=== PATIENT | female | born 1990 | race Caucasian/White ===

== ENCOUNTER 2022-10-10 16:49 | Inpatient (IN) | payer BC, SELFPAY ==
[2022-10-10] VITALS (13 sets, daily range): BP systolic 98–128; BP diastolic 69–100; PULSE 73–106; RESP 11–22; TEMP 36.9; O2SAT 90–99
[2022-10-10] MEDS: naloxone 0.4 mg/ml SDV IVP ×2 (16:50→17:00)
--- NOTE | 2022-10-10 16:57 | XRR_ITS ---
PROCEDURE INFORMATION: Exam: XR Chest Exam date and time: 10/10/2022 5:11 PM Age: 32 years old Clinical indication: Other: Od aspiration; Additional info: Overdose aspiration TECHNIQUE: Imaging protocol: Radiologic exam of the chest. Views: 1 view. COMPARISON: No relevant prior studies available. FINDINGS: Lungs: There are bilateral perihilar and lower lobe airspace density, which may represent pneumonia, pulmonary edema, or inflammatory pneumonitis such as ARDS. Diffuse peribronchial thickening, cephalization of flow and interstitial thickening is noted compatible probable CHF. Pleural spaces: Unremarkable. No pleural effusion. No pneumothorax. Heart/Mediastinum: The heart is enlarged. Bones/joints: No acute abnormality. XR/XR chest 1V portable [id number] IMPRESSION: 1. There are bilateral perihilar and lower lobe airspace density, which may represent pneumonia, pulmonary edema, or inflammatory pneumonitis such as ARDS. 2. Probable CHF.
[2022-10-10 17:06] LABS: ABG PCO2 39.3 mmHg (35-45); ABG PH Result 7.33 (7.35-7.45); Alveolar-Arterial Oxygen Gradi 7.2 mmHg (5-10); Arterial Blood Gas Hematocrit 42.7 % (37-47); Base Excess ABG -4.6 mmol/L (-2.0-2.0); Blood Gas Allen Test Pos; Blood Gas Operator Identificat AMH; Blood Gas Sample Site Radial, left; Blood Gas Sample Type Arterial; Carboxyhemoglobin 2.6 %THgb (0.4-20.1); HCO3 ABG 20.9 mmol/L (22-26); HGB O2 Sat 79.2 % (95-100); Ionized Calcium Level - ABG 1.2 mmol/L (1.1-1.4); Methemoglobin 0.2 % (0.4-1.5); Oxygen Device NC; Oxygen Saturation ABG 81.5; PO2 ABG 45.3 mmHg (80.0-100.0); Potassium Level - ABG 3.6 mmol/L (3.5-5.0); Total Hemoglobin 13.9 g/dL (12-16)
--- NOTE | 2022-10-10 17:07 | W.ED.GENADLT ---
[facility] - General Adult General: Chief complaint: Overdose Stated complaint: OVERDOSE Time Seen by Provider: 10/10/22 16:55 Limitations: altered mental status History of Present Illness: Patient brought into the ER unresponsive and apneic and blue. Patient unresponsive to sternal rub. Was noted somebody said that she may have smoked something that had fentanyl in it. Review of Systems General: Reports: ROS unobtainable due to medical condition and ROS unobtainable due to mental status Physical Exam Const: OTHER: unResponsive to sternal rub and apneic upon arrival. HENMT: COMMON NORMALS: normocephalic and atraumatic (Cyanotic) HEAD & SCALP: normocephalic and atraumatic (Cyanotic) Eye: COMMON NORMALS: Equal, round and reactive pupils present PUPIL: Yes Equal, round and reactive pupils present Neck/C-Spine: COMMON NORMALS: no JVD Resp: OTHER: Apneic upon arrival Cardio: COMMON NORMALS: no JVD, regular rate, regular rhythm, S1 normal heart sound present, S2 normal heart sound present, No gallops present (Cardio), No clicks present (Cardio), No murmurs present (Cardio) and No rub (Cardio) RATE: regular rate RHYTHM: regular rhythm HEART SOUNDS: S1 normal heart sound present and S2 normal heart sound present GI: COMMON NORMALS: Normal to inspection, nondistended, normoactive bowel sounds present, Soft to palpation, non-tender, No hepatosplenomegaly present and no masses PALPATION: Yes Soft to palpation and Yes No hepatosplenomegaly present Skin: NARRATIVE SKIN EXAM: Cyanotic [facility] - General Adult Medical Decision Making Patient arrived to the ER apneic and blue and unresponsive. IV was started patient was given approximately 0.8 mg of Narcan while we were bagging her. Patient then proceeded to vomit up a copious amount of vomitus with alcohol. Patient then was alert but requiring high flow oxygen. ABG and labs was obtained as well as a chest x-ray. Patient did admit to smoking fentanyl. And drinking all day long. Anticipate patient will be admitted to the ICU for observation Differential Diagnosis Overdose Medical Records I reviewed the patient's medical records. Lab Data I reviewed the patient's lab results. 10/10/22 16:55 10/10/22 16:55 Radiology Impressions Chest X-Ray 10/10/22 16:57 IMPRESSION: 1. There are bilateral perihilar and lower lobe airspace density, which may represent pneumonia, pulmonary edema, or inflammatory pneumonitis such as ARDS. 2. Probable CHF. Laboratory Results WBC 19.6 10^3/uL (4.0-10.0) H 10/10/22 16:55 RBC 4.56 10^6/uL (4.1-5.3) 10/10/22 16:55 Hgb 13.5 g/dL (11.5-15.3) 10/10/22 16:55 Hct 42.0 % (37.0-47.0) 10/10/22 16:55 MCV 92.1 fl (81-99) 10/10/22 16:55 MCH 29.6 pg (28.0-34.0) 10/10/22 16:55 MCHC 32.1 g/dL (30.0-36.0) 10/10/22 16:55 RDW 12.5 % (12.1-15.1) 10/10/22 16:55 Plt Count 423 10^3/cmm (130-400) H 10/10/22 16:55 MPV 9.5 fL (7.4-10.4) 10/10/22 16:55 Neut % (Auto) 33.9 % 10/10/22 16:55 Lymph % (Auto) 56.9 % 10/10/22 16:55 Hunt % (Auto) 5.5 % 10/10/22 16:55 Eos % (Auto) 3.0 % 10/10/22 16:55 Baso % (Auto) 0.4 % 10/10/22 16:55 Neut # (Auto) 6.66 10^3/uL (1.8-7.7) 10/10/22 16:55 Lymph # (Auto) 11.2 10^3/uL (0.8-4.8) H 10/10/22 16:55 Hunt # (Auto) 1.1 10^3/uL (0.2-0.9) H 10/10/22 16:55 Eos # (Auto) 0.6 10^3/uL (0.0-0.8) 10/10/22 16:55 Baso # (Auto) 0.1 10^3/uL (0.0-0.1) 10/10/22 16:55 Nucleated RBC % (auto) 0 % 10/10/22 16:55 Nucleated RBCs # 0.0 /100WBC 10/10/22 16:55 Specimen Type Arterial 10/10/22 16:55 Sample Site Radial, left 10/10/22 16:55 ABG pH 7.33 (7.35-7.45) L 10/10/22 16:55 ABG pCO2 39.3 mmHg (35-45) 10/10/22 16:55 ABG pO2 45.3 mmHg (80.0-100.0) L 10/10/22 16:55 ABG HCO3 20.9 mmol/L (22-26) L 10/10/22 16:55 ABG O2 Saturation 81.5 10/10/22 16:55 ABG Base Excess -4.6 mmol/L (-2.0-2.0) L 10/10/22 16:55 John Test Pos 10/10/22 16:55 A-a O2 Gradient 7.2 mmHg (5-10) 10/10/22 16:55 Hematocrit 42.7 % (37-47) 10/10/22 16:55 Hgb O2 Saturation 79.2 % (95-100) L 10/10/22 16:55 Carboxyhemoglobin 2.6 %THgb (0.4-20.1) 10/10/22 16:55 Methemoglobin 0.2 % (0.4-1.5) L 10/10/22 16:55 Total Hemoglobin 13.9 g/dL (12-16) 10/10/22 16:55 Sodium 139.0 mmol/L (131-143) 10/10/22 16:55 Potassium 3.6 mmol/L (3.5-5.0) 10/10/22 16:55 Glucose 189.0 mg/dL (70-115) H 10/10/22 16:55 Ionized Calcium 1.2 mmol/L (1.1-1.4) 10/10/22 16:55 O2 Delivery Device Nc 10/10/22 16:55 Public Message Service Supervisor ID Amh 10/10/22 16:55 Sodium 136 mmol/L (136-145) 10/10/22 16:55 Potassium 4.3 mmol/L (3.5-5.1) 10/10/22 16:55 Chloride 99 mmol/L (98-107) 10/10/22 16:55 Carbon Dioxide 22 mmol/L (22-29) 10/10/22 16:55 Anion Gap 19.3 (5-19) H 10/10/22 16:55 BUN 10 mg/dL (6-20) 10/10/22 16:55 Creatinine 0.8 mg/dL (0.5-0.9) 10/10/22 16:55 GFR Calculation 84.2 mL/min (90-130) L 10/10/22 16:55 Glucose 184 mg/dL (65-115) H 10/10/22 16:55 Calculated Osmolality 286 mOsm/kg (285-295) 10/10/22 16:55 Calcium 8.7 mg/dL (8.5-10.5) 10/10/22 16:55 Total Bilirubin 0.2 mg/dL (0.15-1.2) 10/10/22 16:55 AST 25 U/L (0-32) 10/10/22 16:55 ALT 22 U/L (0-33) 10/10/22 16:55 Alkaline Phosphatase 79 U/L (35-105) 10/10/22 16:55 Total Protein 7.2 g/dL (6.6-8.7) 10/10/22 16:55 Albumin 4.1 g/dL (3.5-5.2) 10/10/22 16:55 Globulin 3.1 g/dL (1.3-4.6) 10/10/22 16:55 Salicylates < 0.3 mg/dL (3-10) L 10/10/22 16:55 Acetaminophen < 5.0 ug/mL (10-30) L 10/10/22 16:55 Ethyl Alcohol 54 mg/dL (0-10) H 10/10/22 16:55 EKG Data EKG 1: I personally reviewed and interpreted this EKG as follows: EKG interpretation date: 10/10/22 EKG interpretation time: 17:18 Prior EKG tracings: not available for review Interpretation: EKG showed ventricular rate 84 beats a minute, NM interval 141, QRS duration 103, QTc of 478, sinus rhythm with no ST-T wave changes Computer generated interpretation: Chest X-Ray 10/10/22 16:57 IMPRESSION: 1. There are bilateral perihilar and lower lobe airspace density, which may represent pneumonia, pulmonary edema, or inflammatory pneumonitis such as ARDS. 2. Probable CHF. Critical Care Time Critical Care Time: Critical Care Time: Yes Total Critical Care Time: 30 Attestation: The high probability of a clinically significant, sudden or life threatening deterioration of the patient's [cardiorespiratory] system(s) required my full and direct attention, intervention and personal management. The critical care time is as shown. This time is in addition to time spent performing any reported procedures but includes the following: [x] Data and vital sign review and interpretation [x] Patient assessment, examination and intervention [x] Documentation [x] Medication orders and management Discharge Plan Discharge Patient Disposition: Admitted As Inpatient Clinical Impression: Drug overdose Condition: Stable Referrals: Jenny King FNP [Primary Care Provider] - Patient Instructions: Opioid Safety, Pain Management Coding Level of Care Code ED Library Services Dean for Alex Wilkerson
[2022-10-10 17:14] LABS: Basophils # 0.1 10^3/uL (0.0-0.1); Basophils % 0.4 %; Eosinophils # 0.6 10^3/uL (0.0-0.8); Hemoglobin 13.5 g/dL (11.5-15.3); Lymphocytes # 11.2 10^3/uL (0.8-4.8); Lymphocytes % 56.9 %; Mean Corpuscular HGB Conc 32.1 g/dL (30.0-36.0); Mean Corpuscular Hemoglobin 29.6 pg (28.0-34.0); Mean Corpuscular Volume 92.1 fl (81-99); Mean Platelet Volume 9.5 fL (7.4-10.4); Monocytes # 1.1 10^3/uL (0.2-0.9); Monocytes % 5.5 %; Neutrophils # 6.66 10^3/uL (1.8-7.7); Neutrophils % 33.9 %; Nucleated Red Blood Cells % 0 %; Platelet Count 423 10^3/cmm (130-400); Red Blood Count 4.56 10^6/uL (4.1-5.3); Red Cell Distribution Width 12.5 % (12.1-15.1); White Blood Count 19.6 10^3/uL (4.0-10.0)
--- NOTE | 2022-10-10 17:18 | ECG_ITS ---
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 Measurements Intervals [place] Rate: 84 P: 39 MA: 141 QRS: 65 QRSD: 103 T: 52 QT: 436 QTc: 518 Interpretive Statements SINUS RHYTHM PROLONGED QT INTERVAL No previous ECG available for comparison Electronically Signed On 10-11-2022 18:35:51 CDT by Jamaal Mensah M.D. [id number]
[2022-10-10] MEDS: sodium chloride 0.9% 1,000 ML 999 ML IV (17:22)
[2022-10-10] MEDS: ondansetron 2 mg/ML SDV 2 mL 8 MG IVP (17:22)
[2022-10-10 17:30] LABS: Slide Review Slide Review Perform
[2022-10-10 17:35] LABS: Alanine Aminotransferase 22 U/L (0-33); Albumin Level 4.1 g/dL (3.5-5.2); Alcohol Level 54 mg/dL (0-10); Alkaline Phosphatase 79 U/L (35-105); Anion Gap 19.3 (5-19); Aspartate Amino Transferase 25 U/L (0-32); Blood Urea Nitrogen 10 mg/dL (6-20); Calcium 8.7 mg/dL (8.5-10.5); Carbon Dioxide 22 mmol/L (22-29); Chloride 99 mmol/L (98-107); Globulin 3.1 g/dL (1.3-4.6); Glomerular Filtration Rate 84.2 mL/min (90-130); Glucose 184 mg/dL (65-115); Osmolality Calculated 286 mOsm/kg (285-295); Potassium 4.3 mmol/L (3.5-5.1); Sodium 136 mmol/L (136-145); Total Bilirubin 0.2 mg/dL (0.15-1.2); Total Protein 7.2 g/dL (6.6-8.7)
--- NOTE | 2022-10-10 17:38 | PC.NURSE ---
PT arrived POV nursing staff helped PT from vehicle to wheelchair. pt arrived to room and was not breathing, appeared pale, pupils dilated and fixed, but did have a strong pulse. Respiratory was in room and began to bag PT. 2 18 gauge IVs placed in AV bilateral. PT received Narcan at 1647 IV. PT received an additional dose of NArcan IV at 1651. At 1652 PT sat up and began to vomit. Bag mask was removed and respiratory began suctioning. At 1654 respiratory placed PT on 6L NC 1654 vitals: 158/100, 29RR, 99 pulse, 85 percent o2, PT placed on 15 L non rebreather by respiratory o2 sats come above 90 percent. By 1700 pt was sating above 90, answering questions appropriately and in NAD. PT admitted to nursing staff she smoked fentanyl and had been drinking. Physician, several RN's, respiratory, and tech present at time of event.
[2022-10-10 17:51] LABS: Acetaminophen < 5.0 ug/mL (10-30); Salicylate < 0.3 mg/dL (3-10)
[2022-10-10] MEDS: FUROsemide 10 mg/mL SDV 10mL 60 MG IVP (18:23)
[2022-10-10] MEDS: piperacillin-tazobactam 3.375 GM in sodium chloride 0.9% (plus) 50 ML IV (18:23)
--- NOTE | 2022-10-10 18:31 | P.HP_ITS ---
Providers/Chief Complaint Admitting Physician: Britney Hawkins MD Primary Care Provider: ROSALIE Deluna Chief Complaint: OVERDOSE History of Present Illness Jamilah Vargas is a 32 year old female who presented with fentanyl overdose, responded very well to Narcan, patient stating that she has been drinking alcohol has been clean off fentanyl for a while and tried 1 more time today and became unresponsive. She does not member anything, she is not endorsing homicidal or suicidal ideation. 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 She aspirated after couple episode of vomiting when she woke up. Currently she is tachycardic, suffering from aspiration pneumonia requiring 6 L of nasal cannula along 15 L nonrebreather mask. She is saturating well able to protect airway, awake and alert, able to tell us H&P Lives with a boyfriend and 2 kids Review of Systems Const: Reports: chills Eyes: Denies: change in vision ENMT: Denies: throat pain Card: Denies: chest pain Resp: Reports: dyspnea GI: Denies: abdominal pain : Denies: flank pain Musc: Denies: neck pain Skin/Breast: Denies: rash Neuro: Reports: headache(s) Psych: Reports: anxiety PFSH Acute PFSH: Medical History (Updated 10/10/22 @ 18:37 by Britney Hawkins MD) Polysubstance abuse Surgical History (Updated 10/10/22 @ 18:37 by Britney Hawkins MD) No pertinent past surgical history Family History (Updated 10/10/22 @ 18:37 by Britney Hawkins MD) Denies family history of CAD (coronary artery disease) Social History (Updated 10/10/22 @ 18:37 by Britney Hawkins MD) Smoking and tobacco status: current every day smoker Alcohol intake: current Substance/Drug Use: current Vitals/I&O/Wt Last Vital Signs Pulse 90 10/10/22 18:15 Resp 16 10/10/22 18:15 BP 106/79 10/10/22 18:15 Pulse Ox 90 10/10/22 18:15 O2 Del Method Non-Rebreather 10/10/22 18:12 O2 Flow Rate 15 10/10/22 18:12 Physical Exam Narrative: Patient is awake and alert GCS 15 Awake and alert Nonfocal neuro exam S1, S2 Currently on 15 L nonrebreather mask and 6 L nasal cannula Chest normal Able to block airway Nonfocal neuro exam S1, S2 sinus tachycardia Hypertensive Abdomen soft No signs of edema Data 10/10/22 16:55 10/10/22 16:55 A&P Assessment and plan (1) Aspiration pneumonia: (2) Drug overdose: Qualifiers: Encounter type: initial encounter Injury intent: accidental or unintentional Qualified Code(s): T50.901A - Poisoning by unspecified drugs, medicaments and biological substances, accidental (unintentional), initial encounter Plan Aspiration pneumonia Drug overdose Patient stating that she could have history of persistent abuse, she was clean off fentanyl for quite some time and tried 1 more time today Not homicidal or suicidal Tachycardia Patient had 2 shots of tequila as well along her frontal, patient endorsing to smoking fentanyl Responded to 2 doses of Narcan We will monitor in ICU After vomiting she aspirated now suffering from aspiration pneumonia We will start broad-spectrum antibiotics Monitor for any kind of arrhythmias, started on thiamine and folic acid Full code We will keep her on clear liquids for now DVT prophylaxis Lovenox Attestations Medical Necessity Statement*: Anticipating more than 2 midnights for monitoring of fentanyl overdose Diagnoses Aspiration pneumonia J69.0 Drug overdose T50.901A Encounter type: initial encounter Injury intent: accidental or unintentional
[2022-10-10] MEDS: vancomycin 1,000 MG in sodium chloride 0.9% 250 ML 250 MG IV (18:42)
[2022-10-10 19:14] LABS: HCG Qualitative Urine. Negative (Negative)
--- NOTE | 2022-10-10 19:32 | USCV_ITS ---
Jamilah Vargas Age: 32 Gender: F : 1990 Exam Date: 10/10/2022 21:04 Ordering Phys: Britney Hawkins MD Technologist: ZACHARY [place] [facility] [place]: chf BP: / HR: 86 Rhythm: Sinus Technical Quality: Adequate MEASUREMENTS (Male / Female) Normal Values 2D ECHO LV Diastolic Diameter PLAX 5.1 cm 4.2 - 5.9 / 3.9 - 5.3 cm LV Systolic Diameter PLAX 4.3 cm IVS Diastolic Thickness 1.0 cm 0.6 - 1.0 / 0.6 - 0.9 cm IVS Systolic Thickness 1.3 cm LVPW Diastolic Thickness 0.9 cm 0.6 - 1.0 / 0.6 - 0.9 cm LVPW Systolic Thickness 1.1 cm LVOT Diameter 2.1 cm LV Ejection Fraction 2D Teich 32.5 % LV Ejection Fraction MOD 2C 29.6 % LV Ejection Fraction 2C AL 29.6 % LA Diameter 2.6 cm IVC Diameter 1.6 cm M-MODE Aortic Annulus Diameter 3.4 cm LA Ao Ratio MM 0.8 MV E Point Septal Separation 1.0 cm DOPPLER AV Peak Velocity 100.0 cm/s LVOT Peak Velocity 88.0 cm/s AV Area Cont Eq vti 2.8 cm squared AV Area Cont Eq pk 3.1 cm squared MV Area PHT 5.0 cm squared Mitral E to A Ratio 0.6 MV E' Velocity 54.0 cm/s TR Peak Velocity 244.3 cm/s TR Peak Gradient 23.9 mmHg TV Peak E Velocity 39.0 cm/s Right Atrial Pressure 3.0 mmHg Pulmonary Artery Systolic Pressu 26.9 mmHg PV Peak Velocity 73.0 cm/s FINDINGS Left Ventricle Normal left ventricular cavity size. Severely decreased left ventricular systolic function. Left ventricular ejection fraction is estimated at 25-30 %. Severe global hypokinesis of mid to apical anterior, mid to apical inferior, mid anteroseptal, mid inferoseptal, mid lateral and apical elaine. Grade I diastolic dysfunction (abnormal relaxation filling pattern), normal to mildly elevated filling pressures. LV apical thrombus cannot be completely excluded. Right Ventricle Normal right ventricular size and systolic function. Right ventricular systolic pressure 27 mmHg. Right Atrium Normal right atrial size. Left Atrium Normal left atrial size. Mitral Valve Structurally normal mitral valve. No mitral valve stenosis. No mitral valve regurgitation. Aortic Valve Structurally normal trileaflet aortic valve. No aortic valve stenosis. Trace aortic valve regurgitation. Tricuspid Valve Structurally normal tricuspid valve. No tricuspid valve stenosis. Mild tricuspid valve regurgitation. Pulmonic Valve Pulmonic valve not well visualized. Pericardium No pericardial effusion. Aorta Normal size aortic root and proximal ascending aorta. IVC Normal IVC dimension with >50% respiratory change of the inferior vena cava. CONCLUSIONS 1. Normal left ventricular cavity size. Severely decreased left ventricular systolic function. Left ventricular ejection fraction is estimated at 25-30 %. Severe global hypokinesis of mid to apical anterior, mid to apical inferior, mid anteroseptal, mid inferoseptal, mid lateral and apical elaine. Grade I diastolic dysfunction (abnormal relaxation filling pattern), normal to mildly elevated filling pressures. LV apical thrombus cannot be completely excluded. 2. Mild tricuspid valve regurgitation. 3. These findings suggest Takotsubo cardiomyopathy provided coronary artery disease is ruled out. 4. Repeat study with ultrasound enhancing agent is recommended. Dottie Mcclure MD (Electronically Signed) Final Date: 11 October 2022 10:53 S
[2022-10-10] MEDS: heparin 5,000 unit/mL INJ 1 mL 5000 UNIT SUBCUT (19:44)
[2022-10-10] MEDS: acetaminophen 500 mg Tablet PO (20:07)
[2022-10-10 20:22] LABS: NT Pro B Type Natriuretic Pept 189 pg/mL (0-125); Procalcitonin 0.02 ng/mL (0-0.5); Thyroid Stimulating Hormone 2.58 uIU/mL (0.27-4.20)
[2022-10-10 21:24] LABS: Amphetamines Screen Urine Negative (Negative); Barbiturates Screen Urine Negative (Negative); Benzodiazepines Screen Urine Negative (Negative); Cocaine Screen Urine Positive (Negative); Opiate Screen Urine Negative (Negative); PCP Screen Urine Negative (Negative); THC Screen Urine Negative (Negative); Urine Appearance SL Hazy (CLEAR); Urine Color Red (Yellow); pH Urine 7 (5-7)
[2022-10-10 21:25] LABS: Add Urine Microscopic? YES; Bacteria Urine TRACE /hpf; Bilirubin Urine Neg (Negative); Blood Urine 3+ (Negative); Glucose Urine UA Norm (Normal); Ketones Urine Negative (Negative); Leukocyte Esterase Urine Trace (Negative); Nitrate Urine Negative (Negative); Protein Urine Neg (Negative); RBC Urine >100 /hpf (0-2); Squamous Epithelial Cell Urine 0-4 /hpf (0-5); Urobilinogen Urine Norm (Negative); WBC Urine 0-4 /hpf (0-5)
[2022-10-10 21:26] LABS: Add Urine Culture? Yes
[2022-10-11] VITALS (23 sets, daily range): BP systolic 87–129; BP diastolic 62–90; PULSE 66–85; RESP 9–22; TEMP 36.8–37.6; O2SAT 90–98
[2022-10-11] MEDS: piperacillin-tazobactam 3.375 GM in sodium chloride 0.9% (plus) 50 ML IV ×3 (01:49→19:24)
[2022-10-11 03:20] LABS: Basophils % 0.3 %; Eosinophils # 0.2 10^3/uL (0.0-0.8); Eosinophils % 1.7 %; Hemoglobin 13.7 g/dL (11.5-15.3); Lymphocytes # 2.9 10^3/uL (0.8-4.8); Lymphocytes % 24.6 %; Mean Corpuscular HGB Conc 32.6 g/dL (30.0-36.0); Mean Corpuscular Volume 91.9 fl (81-99); Mean Platelet Volume 9.6 fL (7.4-10.4); Monocytes # 0.5 10^3/uL (0.2-0.9); Monocytes % 4.5 %; Neutrophils # 8.18 10^3/uL (1.8-7.7); Neutrophils % 68.6 %; Nucleated Red Blood Cells % 0 %; Platelet Count 362 10^3/cmm (130-400); Red Blood Count 4.57 10^6/uL (4.1-5.3); Red Cell Distribution Width 12.6 % (12.1-15.1); White Blood Count 11.9 10^3/uL (4.0-10.0)
[2022-10-11 03:34] LABS: Anion Gap 15.2 (5-19); Blood Urea Nitrogen 8 mg/dL (6-20); C Reactive Protein 5.7 mg/L (0.0-4.9); Calcium 8.4 mg/dL (8.5-10.5); Carbon Dioxide 29 mmol/L (22-29); Chloride 98 mmol/L (98-107); Glomerular Filtration Rate 84.2 mL/min (90-130); Glucose 102 mg/dL (65-115); Magnesium 1.9 mg/dL (1.7-2.3); Osmolality Calculated 285 mOsm/kg (285-295); Phosphorus 3.3 mg/dL (2.5-4.5); Potassium 4.2 mmol/L (3.5-5.1); Sodium 138 mmol/L (136-145)
[2022-10-11 03:37] LABS: HIV 1 & 2 Antibody Non-Reactive (Non-Reactiv); HIV 1 & 2 Antigen Non-Reactive (Non-Reactiv)
[2022-10-11 03:46] LABS: ABG PCO2 53.5 mmHg (35-45); ABG PH Result 7.38 (7.35-7.45); Arterial Blood Gas Hematocrit 41.5 % (37-47); Blood Gas Allen Test Pos; Blood Gas Sample Site Radial, right; Blood Gas Sample Type Arterial; HCO3 ABG 31.6 mmol/L (22-26); Oxygen Device NC; PO2 ABG 77.6 mmHg (80.0-100.0)
[2022-10-11 03:56] LABS: Hepatitis A Antibody IgM Non-Reactive (Nonreactive); Hepatitis B Core AB, Total Non-Reactive (Nonreactive); Hepatitis B Surface AB 4.2 (11.5-1000); Hepatitis B Surface Antigen Non-Reactive (Nonreactive); Hepatitis C Virus Antibody Non-Reactive (Nonreactive)
[2022-10-11] MEDS: heparin 5,000 unit/mL INJ 1 mL 5000 UNIT SUBCUT (07:58)
[2022-10-11] MEDS: folic acid 1 mg Tablet PO (08:00)
--- NOTE | 2022-10-11 08:31 | PC.PHAR ---
pt states she takes lexapro,protonix and xanax -pt states she is unsure of the mgs pt states she takes the peach xanax-pt states she fills her prescriptions at [facility] [phone]-pharmacy opens at 9 will call back at 9 and update med rec
--- NOTE | 2022-10-11 10:07 | ECG_ITS ---
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 Measurements Intervals [place] Rate: 72 P: 56 MI: 132 QRS: 55 QRSD: 120 T: 81 QT: 446 QTc: 488 Interpretive Statements SINUS RHYTHM MODERATE INTRAVENTRICULAR CONDUCTION DELAY [110+ ms QRS DURATION] Compared to ECG 10/10/2022 17:18:54 Intraventricular conduction delay now present Prolonged QT interval no longer present Electronically Signed On 10-11-2022 18:39:44 CDT by Jamaal Mensah M.D. [id number]
--- NOTE | 2022-10-11 10:08 | PM.DCS ---
Discharge Providers Date of Admission: 10/10/22 18:06 Date of Discharge: October 11, 2022 Attending Provider at Admission: Britney Hawkins MD Attending Provider at Discharge: Britney Hawkins MD Primary Care Provider: ROSALIE Deluna Diagnoses at Discharge Discharge Diagnosis (1) Aspiration pneumonia: Status: Acute (2) Drug overdose: Status: Acute Qualifiers: Encounter type: initial encounter Injury intent: accidental or unintentional Qualified Code(s): T50.901A - Poisoning by unspecified drugs, medicaments and biological substances, accidental (unintentional), initial encounter Reason for Visit Reason for Visit: OVERDOSE Hospital Course Hospital Course 32-year-old female who was admitted for management evaluation of unresponsiveness related to fentanyl, drug screen positive for cocaine as well, patient responded well to 2 doses of Narcan, remained hemodynamically stable, patient experienced 2 episode of vomiting after getting Narcan and aspirated, she remained afebrile, however required oxygen throughout hospitalization, she was monitored in the ICU, EKG showed QTc prolongation, no signs of arrhythmia, echo requested as well patient was given Zosyn for aspiration pneumonia and possible UTI. Next day patient was endorsing feeling better. Patient will be discharged on levofloxacin 5-day regimen along thiamine, folic acid. Patient is stating that she has history of polysubstance abuse and has lived a clean life for a long time but use fentanyl again after a long time, Physical Exam Narrative: Patient is awake and alert GCS 15 No respiratory distress Nonfocal neuro exam Abdomen soft Discharge Data Studies Completed and Pending Completed Studies During Hospitalization Category Date Time Status XR chest 1V portable [id number] Stat Exams 10/10/22 16:57 Completed Pending at discharge Category Date Time Status Blood Culture Stat Lab 10/10/22 19:42 Results MRSA by PCR Stat Lab 10/10/22 19:52 Received Sputum Culture and Gram Stain Stat Lab 10/10/22 20:09 Received Urine Culture Stat Lab 10/10/22 21:00 Received CV. echo complete* [id number] Routine Ultrasound 10/10/22 19:32 Taken Radiology Impressions Chest X-Ray 10/10/22 16:57 IMPRESSION: 1. There are bilateral perihilar and lower lobe airspace density, which may represent pneumonia, pulmonary edema, or inflammatory pneumonitis such as ARDS. 2. Probable CHF. Laboratory Results WBC 11.9 10^3/uL (4.0-10.0) H 10/11/22 02:19 RBC 4.57 10^6/uL (4.1-5.3) 10/11/22 02:19 Hgb 13.7 g/dL (11.5-15.3) 10/11/22 02:19 Hct 42.0 % (37.0-47.0) 10/11/22 02:19 MCV 91.9 fl (81-99) 10/11/22 02:19 MCH 30.0 pg (28.0-34.0) 10/11/22 02:19 MCHC 32.6 g/dL (30.0-36.0) 10/11/22 02:19 RDW 12.6 % (12.1-15.1) 10/11/22 02:19 Plt Count 362 10^3/cmm (130-400) 10/11/22 02:19 MPV 9.6 fL (7.4-10.4) 10/11/22 02:19 Neut % (Auto) 68.6 % 10/11/22 02:19 Lymph % (Auto) 24.6 % 10/11/22 02:19 Harlan % (Auto) 4.5 % 10/11/22 02:19 Eos % (Auto) 1.7 % 10/11/22 02:19 Baso % (Auto) 0.3 % 10/11/22 02:19 Neut # (Auto) 8.18 10^3/uL (1.8-7.7) H 10/11/22 02:19 Lymph # (Auto) 2.9 10^3/uL (0.8-4.8) 10/11/22 02:19 Harlan # (Auto) 0.5 10^3/uL (0.2-0.9) 10/11/22 02:19 Eos # (Auto) 0.2 10^3/uL (0.0-0.8) 10/11/22 02:19 Baso # (Auto) 0.0 10^3/uL (0.0-0.1) 10/11/22 02:19 Nucleated RBC % (auto) 0 % 10/11/22 02:19 Nucleated RBCs # 0.0 /100WBC 10/11/22 02:19 Specimen Type Arterial 10/11/22 03:30 Sample Site Radial, right 10/11/22 03:30 ABG pH 7.38 (7.35-7.45) 10/11/22 03:30 ABG pCO2 53.5 mmHg (35-45) H 10/11/22 03:30 ABG pO2 77.6 mmHg (80.0-100.0) L 10/11/22 03:30 ABG HCO3 31.6 mmol/L (22-26) H 10/11/22 03:30 ABG O2 Saturation 81.5 10/10/22 16:55 ABG Base Excess 5.0 mmol/L (-2.0-2.0) H 10/11/22 03:30 John Test Pos 10/11/22 03:30 A-a O2 Gradient 7.2 mmHg (5-10) 10/10/22 16:55 Hematocrit 41.5 % (37-47) 10/11/22 03:30 Hgb O2 Saturation 79.2 % (95-100) L 10/10/22 16:55 Carboxyhemoglobin 2.6 %THgb (0.4-20.1) 10/10/22 16:55 Methemoglobin 0.2 % (0.4-1.5) L 10/10/22 16:55 Total Hemoglobin 13.9 g/dL (12-16) 10/10/22 16:55 Sodium 139.0 mmol/L (131-143) 10/10/22 16:55 Potassium 3.6 mmol/L (3.5-5.0) 10/10/22 16:55 Glucose 189.0 mg/dL (70-115) H 10/10/22 16:55 Ionized Calcium 1.2 mmol/L (1.1-1.4) 10/10/22 16:55 O2 Delivery Device Nc 10/11/22 03:30 O2 Liters/Min 4.0 % 10/11/22 03:30 Supervisor Customer Complaint Service ID [email or web address] 10/11/22 03:30 Sodium 138 mmol/L (136-145) 10/11/22 02:19 Potassium 4.2 mmol/L (3.5-5.1) 10/11/22 02:19 Chloride 98 mmol/L (98-107) 10/11/22 02:19 Carbon Dioxide 29 mmol/L (22-29) 10/11/22 02:19 Anion Gap 15.2 (5-19) 10/11/22 02:19 BUN 8 mg/dL (6-20) 10/11/22 02:19 Creatinine 0.8 mg/dL (0.5-0.9) 10/11/22 02:19 GFR Calculation 84.2 mL/min (90-130) L 10/11/22 02:19 Glucose 102 mg/dL (65-115) 10/11/22 02:19 Calculated Osmolality 285 mOsm/kg (285-295) 10/11/22 02:19 Calcium 8.4 mg/dL (8.5-10.5) L 10/11/22 02:19 Phosphorus 3.3 mg/dL (2.5-4.5) 10/11/22 02:19 Magnesium 1.9 mg/dL (1.7-2.3) 10/11/22 02:19 Total Bilirubin 0.2 mg/dL (0.15-1.2) 10/10/22 16:55 AST 25 U/L (0-32) 10/10/22 16:55 ALT 22 U/L (0-33) 10/10/22 16:55 Alkaline Phosphatase 79 U/L (35-105) 10/10/22 16:55 C-Reactive Protein 5.7 mg/L (0.0-4.9) H 10/11/22 02:19 NT-Pro-B Natriuret Pep 189 pg/mL (0-125) H 10/10/22 19:42 Total Protein 7.2 g/dL (6.6-8.7) 10/10/22 16:55 Albumin 4.1 g/dL (3.5-5.2) 10/10/22 16:55 Globulin 3.1 g/dL (1.3-4.6) 10/10/22 16:55 Procalcitonin 0.02 ng/mL (0-0.5) 10/10/22 19:42 TSH 2.58 uIU/mL (0.27-4.20) 10/10/22 19:42 HCG, Qual Negative (Negative) 10/10/22 18:42 Urine Color Red (Yellow) 10/10/22 21:00 Urine Appearance Sl hazy (CLEAR) A 10/10/22 21:00 Urine pH 7 (5-7) 10/10/22 21:00 Ur Specific [place] 1.000 (1.005-1.030) L 10/10/22 21:00 Urine Protein Neg (Negative) 10/10/22 21:00 Urine Glucose (UA) Norm (Normal) 10/10/22 21:00 Urine Ketones Negative (Negative) 10/10/22 21:00 Urine Blood 3+ (Negative) H 10/10/22 21:00 Urine Nitrate Negative (Negative) 10/10/22 21:00 Urine Bilirubin Neg (Negative) 10/10/22 21:00 Urine Urobilinogen Norm mg/dL (Negative) 10/10/22 21:00 Ur Leukocyte Esterase Trace (Negative) H 10/10/22 21:00 Urine RBC >100 /hpf (0-2) H 10/10/22 21:00 Urine WBC 0-4 /hpf (0-5) H 10/10/22 21:00 Ur Squamous Epith Cells 0-4 /hpf (0-5) H 10/10/22 21:00 Amorphous Sediment Not Reportable 10/10/22 21:00 Urine Bacteria Trace /hpf (NONE) 10/10/22 21:00 Salicylates < 0.3 mg/dL (3-10) L 10/10/22 16:55 Urine Opiates Screen Negative ng/mL (Negative) 10/10/22 21:00 Acetaminophen < 5.0 ug/mL (10-30) L 10/10/22 16:55 Ur Barbiturates Screen Negative ng/mL (Negative) 10/10/22 21:00 Ur Phencyclidine Scrn Negative ng/mL (Negative) 10/10/22 21:00 Ur Amphetamines Screen Negative ng/mL (Negative) 10/10/22 21:00 U Benzodiazepines Scrn Negative ng/mL (Negative) 10/10/22 21:00 Urine Cocaine Screen Positive ng/mL (Negative) H 10/10/22 21:00 U Marijuana (THC) Screen Negative ng/mL (Negative) 10/10/22 21:00 Ethyl Alcohol 54 mg/dL (0-10) H 10/10/22 16:55 Hepatitis A IgM Ab Non-reactive (Nonreactive) 10/10/22 02:19 Hep Bs Antigen Non-reactive (Nonreactive) 10/10/22 02:19 Hep Bs Antibody 4.2 (11.5-1000) L 10/10/22 02:19 Hep B Core Total Ab Non-reactive (Nonreactive) 10/10/22 02:19 Hepatitis C Antibody Non-reactive (Nonreactive) 10/10/22 02:19 HIV 1&2 Ab & HIV 1 Ag Non-reactive (Non-Reactiv) 10/10/22 02:19 HIV 1&2 Antibody Non-reactive (Non-Reactiv) 10/10/22 02:19 Vitals Last Vital Signs Temp 98.2 F 10/11/22 03:00 Pulse 70 10/11/22 08:06 Resp 17 10/11/22 08:06 BP 87/62 10/11/22 08:00 Pulse Ox 93 10/11/22 08:06 O2 Del Method Nasal Cannula 10/11/22 08:06 O2 Flow Rate 2 10/11/22 08:06 Discharge Plan Discharge Patient Disposition: Home Condition: Stable Prescriptions: New folic acid 1 mg Tablet 1 mg PO DAILY Qty: 30 0RF naloxone [Narcan] 4 mg/actuation spray,non-aerosol 4 mg intranasal Q2M PRN (Reason: opioid overdose) Qty: 2 0RF Rx Instructions: spray 1 dose into ONE nostril; alternate nostrils w each dose until help arrives thiamine mononitrate (vit B1) 100 mg tablet 100 mg PO DAILY Qty: 30 0RF amoxicillin-pot clavulanate 875-125 mg tablet 1 tab PO BID Qty: 10 0RF Continued Xanax 0.5 mg Tablet 0.5 mg PO DAILY PRN (Reason: Anxiety) Protonix 40 mg Tablet,Delayed Release (Dr/Ec) 40 mg PO DAILY Lexapro 20 mg Tablet 20 mg PO DAILY Referrals: Jenny King FNP [Primary Care Provider] - 2 weeks Patient Instructions: Opioid Safety, Pain Management Coding Level of Care Code Acute Code for [facility] Fwd Diagnoses Aspiration pneumonia J69.0 Drug overdose T50.901A Encounter type: initial encounter Injury intent: accidental or unintentional
[2022-10-11] MEDS: lactated ringers 500 ML 999 ML IV (10:38)
[2022-10-11] MEDS: acetaminophen 500 mg Tablet PO (10:41)
--- NOTE | 2022-10-11 12:24 | P.PN_ITS ---
Subjective Subjective: Echo showed possibility for apical thrombus, will request echo with contrast Consulted accounts payable accountant Dr. James Patient will need coronary angiogram because her EF has dropped 30% likely nonischemic but would like to pursue further investigation Vitals/I&O/Wt Last Vital Signs Temp 98.2 F 10/11/22 03:00 Pulse 84 10/11/22 11:00 Resp 14 10/11/22 11:00 BP 94/70 10/11/22 11:00 Pulse Ox 97 10/11/22 11:10 O2 Del Method Nasal Cannula 10/11/22 08:06 O2 Flow Rate 2 10/11/22 08:06 10/10/22 10/11/22 10/11/22 22:59 06:59 14:59 Intake Total 1550 / 1550 50 / 1600 625 / 625 Balance 1550 / 1550 50 / 1600 625 / 625 Weight last 48 hrs Weight 86.75 kg Physical Exam Narrative: Euvolemic S1, S2 Currently on 2 L GCS 15 Nonfocal neuro exam Family is at the bedside Appropriate mood and affect Data 10/11/22 02:19 10/11/22 02:19 Micro: Microbiology 10/10/22 19:52 MRSA Culture - Final Nose 10/10/22 19:42 Blood Culture - Preliminary Blood SPECIMEN COLLECTED 10/10/22 19:35 Blood Culture - Preliminary Blood SPECIMEN COLLECTED A&P Assessment and plan (1) Aspiration pneumonia: (2) Drug overdose: Qualifiers: Encounter type: initial encounter Injury intent: accidental or unintentional Qualified Code(s): T50.901A - Poisoning by unspecified drugs, medicaments and biological substances, accidental (unintentional), initial encounter (3) Cardiomyopathy: Plan Likely nonischemic cardiomyopathy Concern for left ventricle thrombus We will start patient on IV anticoagulating agent EF is 30% Consulted cardiology No active signs of heart failure Low blood pressure, will give a low-dose bolus Drug overdose Cocaine positive Fentanyl overdose, status post 2 dose of Narcan Hemodynamically stable for now QTC prolongation, redo EKG, will require serial troponins and EKG Cardiac diet Full code Attestations Medical Necessity Statement*: Patient will stay until Tuesday for angiogram Diagnoses Aspiration pneumonia J69.0 Drug overdose T50.901A Encounter type: initial encounter Injury intent: accidental or unintentional Cardiomyopathy I42.9
--- NOTE | 2022-10-11 12:26 | USCV_ITS ---
Jamilah Vargas Age: 32 Gender: F : 1990 Exam Date: 10/11/2022 13:22 Ordering Phys: Britney Hawkins MD Technologist: Abdirizak Ojeda Exam Location: [facility] [place] Indication: ? lv thrombus BP: 127 / 86 HR: 74 Rhythm: Sinus Technical Quality: Good MEASUREMENTS (Male / Female) Normal Values 2D ECHO LV Diastolic Diameter PLAX 5.0 cm 4.2 - 5.9 / 3.9 - 5.3 cm LV Systolic Diameter PLAX 3.1 cm IVS Diastolic Thickness 1.0 cm 0.6 - 1.0 / 0.6 - 0.9 cm IVS Systolic Thickness 1.2 cm LVPW Diastolic Thickness 1.1 cm 0.6 - 1.0 / 0.6 - 0.9 cm LVPW Systolic Thickness 1.5 cm LV Ejection Fraction 2D Teich 69.5 % LV Ejection Fraction MOD 2C 40.4 % LV Ejection Fraction 2C AL 40.4 % LA Diameter 3.3 cm IVC Diameter 1.2 cm M-MODE Aortic Annulus Diameter 3.3 cm LA Ao Ratio MM 1.0 MV E Point Septal Separation 1.5 cm DOPPLER AV Peak Velocity 127.0 cm/s LVOT Peak Velocity 111.0 cm/s MV Area PHT 4.9 cm squared Mitral E to A Ratio 0.6 MV E' Velocity 33.0 cm/s Mitral E to MV E' Ratio 7.8 Mitral E to LV E' Lateral Ratio 7.1 Mitral E to LV E' Septal Ratio 8.9 TR Peak Velocity 178.3 cm/s TR Peak Gradient 12.7 mmHg TV Peak E Velocity 74.0 cm/s Right Atrial Pressure 3.0 mmHg Pulmonary Artery Systolic Pressu 15.7 mmHg RV Acceleration Time 0.1 s FINDINGS Left Ventricle Normal left ventricular cavity size. Severely decreased left ventricular systolic function. Left ventricular ejection fraction is estimated at 30 %. Severe global hypokinesis of mid to apical anterior, mid to apical inferior, mid anteroseptal, mid inferoseptal, mid lateral and apical elaine. Grade I diastolic dysfunction (abnormal relaxation filling pattern), normal to mildly elevated filling pressures. No evidence of LV apical thrombus. Right Ventricle Normal right ventricular size and systolic function. Right ventricular systolic pressure 15.7 mmHg. Right Atrium Normal right atrial size. Left Atrium Normal left atrial size. Mitral Valve Structurally normal mitral valve. No mitral valve stenosis. Trace mitral valve regurgitation. Aortic Valve Structurally normal trileaflet aortic valve. No aortic valve stenosis. No aortic valve regurgitation. Tricuspid Valve Structurally normal tricuspid valve. No tricuspid valve stenosis. Trace to mild tricuspid valve regurgitation. Pulmonic Valve Structurally normal pulmonic valve. No pulmonary valve stenosis. Trace pulmonary valve regurgitation. Pericardium No pericardial effusion. Aorta Normal size aortic root and proximal ascending aorta. IVC Normal IVC dimension with >50% respiratory change of the inferior vena cava. CONCLUSIONS 1. There is a technically difficult study. Echo contrast was used per protocol. 2. Normal left ventricular cavity size. Severely decreased left ventricular systolic function. Left ventricular ejection fraction is estimated at 30 %. Severe global hypokinesis of mid to apical anterior, mid to apical inferior, mid anteroseptal, mid inferoseptal, mid lateral and apical elaine. Grade I diastolic dysfunction (abnormal relaxation filling pattern), normal to mildly elevated filling pressures. No evidence of LV apical thrombus. Dottie Mcclure MD (Electronically Signed) Final Date: 11 October 2022 15:23 S
[2022-10-11 13:11] LABS: Troponin(5th) Baseline 68 ng/L (0-10)
[2022-10-11] MEDS: heparin 5,000 unit/mL INJ 1 mL IV (13:15)
[2022-10-11] MEDS: heparin drip 25,000 UNIT/500 ML PREMIX 24 UNIT IV (13:16)
[2022-10-11] MEDS: perflutren protein-a microsphr 0.22 mg/mL SDV 3 mL IV (13:48)
--- NOTE | 2022-10-11 14:06 | ECG_ITS ---
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 Measurements Intervals [place] Rate: 71 P: 20 SD: 119 QRS: 34 QRSD: 90 T: 53 QT: 433 QTc: 473 Interpretive Statements SINUS RHYTHM WITH SHORT SD INTERVAL POSSIBLE ANTERIOR MYOCARDIAL INFARCTION , PROBABLY OLD [30 ms Q WAVE IN V3/V4, OR R < 0.2 mV IN V4] Compared to ECG 10/11/2022 10:57:48 Short SD interval now present Myocardial infarct finding now present Intraventricular conduction delay no longer present Electronically Signed On 10-11-2022 18:52:50 CDT by Jamaal Mensah M.D. [id number]
[2022-10-11 15:08] LABS: Troponin 5 2HR 62.77 ng/L (0-10)
[2022-10-11 15:17] LABS: Troponin 5 2HR Delta -5.23 ABS# (0-10)
--- NOTE | 2022-10-11 16:12 | ECG_ITS ---
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 Measurements Intervals [place] Rate: 75 P: 31 MO: 130 QRS: 41 QRSD: 98 T: 84 QT: 422 QTc: 474 Interpretive Statements SINUS RHYTHM INCOMPLETE RIGHT BUNDLE BRANCH BLOCK [90+ ms QRS DURATION, TERMINAL R IN V1/V2, 40+ ms S IN I/aVL/V4/V5/V6] NONSPECIFIC T-WAVE ABNORMALITY Compared to ECG 10/11/2022 14:06:16 Incomplete right bundle-branch block now present T-wave abnormality now present Short MO interval no longer present Myocardial infarct finding no longer present Electronically Signed On 10-11-2022 18:42:07 CDT by Jamaal Mensah M.D. [id number]
--- NOTE | 2022-10-11 16:31 | PM.CONSULT ---
Providers/Reason For Consult Consulting Physician/Specialty*: Josiah Junior MD/ Cardiology Reason for Consult*: Cardiomyopathy Requesting Physician: Dr Hawkins Attending Physician: Britney Hawkins MD Primary Care Provider: ROSALIE Deluna History of Present Illness History of Present Illness Jamilah Vargas is a 32 year old female with no significant prior cardiac history presented to hospital with fentanyl overdose. Was given Narcan and responded well. Also evidence of aspiration pneumonia. On treatment for that. Initially concern for LV thrombus however with contrast echo ruled that out. Initial troponin was elevated at 68 and has trended down. EKG shows sinus rhythm with a heart rate of 83 bpm and prolonged QTc. Denies chest pain. Review of Systems Narrative: GENERAL: Patient is alert, awake and oriented x3. [] NECK: No jugular vein distension. [] HEENT: No cyanosis. No icterus. No pallor. [] HEART: Regular S1 and S2. No murmur, rub or gallop. [] LUNGS: Clear to auscultate bilaterally. [] CENTRAL NERVOUS SYSTEM: Grossly nonfocal. [] EXTREMITIES: Lower extremities with no edema Medications/Allergies Home Medications Medication Instructions Recorded Confirmed Last Taken Type alprazolam 0.5 mg tablet (Xanax) 0.5 mg PO DAILY PRN Anxiety 10/11/22 10/11/22 Unknown History escitalopram oxalate 20 mg tablet 20 mg PO DAILY 10/11/22 10/11/22 Unknown History (Lexapro) pantoprazole 40 mg tablet,delayed 40 mg PO DAILY 10/11/22 10/11/22 Unknown History release (Protonix) Allergies Allergy/AdvReac Type Severity Reaction Status Date / Time No Known Allergies Allergy Verified 10/11/22 09:05 Current Medications Generic Name Dose Route Start Last Admin Trade Name Freq PRN Reason Stop Dose Admin Acetaminophen 500 mg 10/10/22 20:02 10/11/22 10:41 Acetaminophen 500 Mg Tablet PO 500 mg Q4H PRN Administration MILD PAIN OR INCREASE TEMP Folic Acid 1 mg 10/11/22 09:00 10/11/22 08:00 Folic Acid 1 Mg Tablet PO 1 mg DAILY RON Administration Heparin Sodium (Porcine) 0 unit 10/11/22 12:26 10/11/22 13:15 Heparin 5,000 Unit/Ml Inj 1 Ml IV 4,300 unit PRN PRN Administration Heparin weight-base protocol Protocol Piperacillin Sod/Tazobactam 50 mls @ 12.5 mls/hr 10/11/22 02:00 10/11/22 13:58 Sod 3.375 gm/ Sodium Chloride IV Infused Q8H RON Infusion Protocol Heparin Sodium/Sodium Chloride 25,000 unit in 500 mls @ 0 mls/hr 10/11/22 12:30 10/11/22 13:16 Heparin Drip IV 13.83 unit/kg/hr .Q0M RON 24 mls/hr Administration Protocol Per Protocol Naloxone HCl 0.4 mg 10/10/22 16:58 10/10/22 17:00 Naloxone 0.4 Mg/Ml Sdv IVP 0.4 mg PRN PRN Administration RESPIRATORY RATE < 8/MIN Thiamine HCl 100 mg 10/11/22 09:00 10/11/22 07:59 Thiamine 100 Mg/Ml Sdv IVP 100 mg DAILY RON Administration PFSH Acute PFSH: Medical History Polysubstance abuse Surgical History No pertinent past surgical history Family History Denies family history of CAD (coronary artery disease) Social History Smoking and tobacco status: current every day smoker Alcohol intake: current Substance/Drug Use: current Female Reproductive History: Date of last menstrual period: 10/10/22 Vitals/I&O/Wt Last Vital Signs Temp 99.7 F H 10/11/22 14:37 Pulse 81 10/11/22 16:00 Resp 11 L 10/11/22 16:00 BP 106/74 10/11/22 16:00 Pulse Ox 91 10/11/22 14:00 O2 Del Method Nasal Cannula 10/11/22 08:06 O2 Flow Rate 2 10/11/22 08:06 10/11/22 10/11/22 10/11/22 06:59 14:59 22:59 Intake Total 50 / 1600 1035 / 1035 Balance 50 / 1600 1035 / 1035 Weight last 48 hrs Weight 191 lb 4 oz Physical Exam Narrative: GENERAL: Patient is alert, awake and oriented x3. [] NECK: No jugular vein distension. [] HEENT: No cyanosis. No icterus. No pallor. [] HEART: Regular S1 and S2. No murmur, rub or gallop. [] LUNGS: Clear to auscultate bilaterally. [] CENTRAL NERVOUS SYSTEM: Grossly nonfocal. [] EXTREMITIES: Lower extremities with 1+ edema bilaterally. Data 10/11/22 02:19 10/12/22 01:21 Micro: Microbiology 10/10/22 20:09 Gram Stain - Final Sputum - Expectorated Sputum 10/10/22 19:52 MRSA Culture - Final Nose 10/10/22 19:42 Blood Culture - Preliminary Blood SPECIMEN COLLECTED 10/10/22 19:35 Blood Culture - Preliminary Blood SPECIMEN COLLECTED A&P Assessment and plan (1) Cardiomyopathy: (2) Aspiration pneumonia: (3) Drug overdose: Qualifiers: Encounter type: initial encounter Injury intent: accidental or unintentional Qualified Code(s): T50.901A - Poisoning by unspecified drugs, medicaments and biological substances, accidental (unintentional), initial encounter Plan Patient has newly diagnosed cardiomyopathy with severely low LV systolic function and EF of 30%. LV thrombus ruled out. Initial troponin was elevated however it has trended down. We will proceed with coronary angiogram to rule out CAD as underlying cause of cardiomyopathy. We will perform it on Tuesday. NPO past midnight prior to procedure Thank you for involving us with care of this patient. We will continue to follow. Please call with questions. Consult Attestations Medical Necessity Statement: Care expected to cross 2 midnights. Coding Level of Care Code Acute Code for [facility] Diagnoses Cardiomyopathy I42.9 Aspiration pneumonia J69.0 Drug overdose T50.901A Encounter type: initial encounter Injury intent: accidental or unintentional
--- NOTE | 2022-10-11 18:01 | PC.NURSE ---
Report called to BARBARA Chávez on CSU. Patient transferred to CSU via wheelchair accompanied by this nurse, all belongings followed and placed at bedside. This nurse notified BARBARA Chávez of patients arrival to the unit.
[2022-10-11 19:02] LABS: Troponin 5 6HR 53.66 ng/L (0-10)
[2022-10-12] VITALS (10 sets, daily range): BP systolic 95–111; BP diastolic 70–75; PULSE 72–84; RESP 13–18; TEMP 36.9–37.2; O2SAT 90–97
[2022-10-12 01:56] LABS: Partial Thromboplastin Time 75.4 SECONDS (23.9-36.7)
[2022-10-12] MEDS: piperacillin-tazobactam 3.375 GM in sodium chloride 0.9% (plus) 50 ML IV ×2 (02:13→09:48)
[2022-10-12 02:46] LABS: Anion Gap 12.5 (5-19); Blood Urea Nitrogen 13 mg/dL (6-20); Carbon Dioxide 29 mmol/L (22-29); Chloride 103 mmol/L (98-107); Glomerular Filtration Rate 84.2 mL/min (90-130); Glucose 132 mg/dL (65-115); Osmolality Calculated 292 mOsm/kg (285-295); Potassium 4.5 mmol/L (3.5-5.1); Sodium 140 mmol/L (136-145)
[2022-10-12 08:34] LABS: Partial Thromboplastin Time 48.3 SECONDS (23.9-36.7)
[2022-10-12] MEDS: folic acid 1 mg Tablet PO (08:50)
--- NOTE | 2022-10-12 09:53 | PC.NURSE ---
orders to DC heparin gtt
--- NOTE | 2022-10-12 10:13 | PM.PN ---
Subjective Subjective: No signs of left ventricular thrombus Patient is asymptomatic No overnight events Discontinue heparin drip Vitals/I&O/Wt Last Vital Signs Temp 98.8 F 10/12/22 08:00 Pulse 72 10/12/22 08:00 Resp 14 10/12/22 08:00 BP 99/70 10/12/22 08:00 Pulse Ox 97 10/12/22 08:00 O2 Del Method Room Air 10/12/22 08:00 O2 Flow Rate 2 10/11/22 08:06 10/11/22 10/12/22 10/12/22 22:59 06:59 14:59 Intake Total 360 / 1395 407.2 / 1802.2 289.033 / 289.033 Balance 360 / 1395 407.2 / 1802.2 289.033 / 289.033 Weight last 48 hrs Weight 86.75 kg Physical Exam Narrative: Awake and alert Euvolemic GCS 15 Currently doing well room air Hemodynamically stable Asymptomatic Turn off heparin drip which sitting at the bedside S1, S2 Abdomen soft Data 10/11/22 02:19 10/12/22 01:21 Micro: Microbiology 10/10/22 21:00 Urine Culture - Preliminary Urine,Clean Catch 10/10/22 19:42 Blood Culture - Preliminary Blood NEGATIVE TO DATE 10/10/22 19:35 Blood Culture - Preliminary Blood NEGATIVE TO DATE 10/10/22 20:09 Gram Stain - Final Sputum - Expectorated Sputum 10/10/22 19:52 MRSA Culture - Final Nose A&P Assessment and plan (1) Cardiomyopathy: (2) Aspiration pneumonia: (3) Drug overdose: Qualifiers: Encounter type: initial encounter Injury intent: accidental or unintentional Qualified Code(s): T50.901A - Poisoning by unspecified drugs, medicaments and biological substances, accidental (unintentional), initial encounter Plan Drug overdose status post 2 doses of Narcan Improved Cardiomyopathy related to known ischemia most likely Plan for coronary angiogram on Tuesday by Dr. Junior Left atrial thrombus ruled out echo with contrast did not show such changes I will discontinue heparin drip which was started yesterday Full code Patient was counseled on avoiding because of EF of 30% she will need another echo after 6 months and close follow-up with cardiology After midnight Plan for angiogram tomorrow With her EF of 30% this would be her new blood pressure baseline Attestations Medical Necessity Statement*: Discharge tomorrow Diagnoses Cardiomyopathy I42.9 Aspiration pneumonia J69.0 Drug overdose T50.901A Encounter type: initial encounter Injury intent: accidental or unintentional
[2022-10-12] MEDS: aspirin 325 mg EC Tablet PO (16:35)
[2022-10-12] MEDS: amoxicillin-clav 875-125 mg Tablet 1 TAB PO (16:35)
[2022-10-12] MEDS: acetaminophen 500 mg Tablet PO (17:36)
[2022-10-12] MEDS: LORazepam 2 mg/mL INJ 1 mL 0.5 MG IVP (17:36)
[2022-10-13] VITALS (8 sets, daily range): BP systolic 95–109; BP diastolic 51–74; PULSE 64–75; RESP 15–16; TEMP 36.6–36.8; O2SAT 94–97
[2022-10-13 04:19] LABS: Platelet Count 347 10^3/cmm (130-400)
--- NOTE | 2022-10-13 05:28 | XACV_ITS ---
Exam Room: [facility] Ht: 168 cm Wt: 87 kg BSA: 2.04 m2 Gender: Female : 1990 Any Known Allergies: No known allergies Exam Priority: Routine Indication(s): - Decreased LV systolic function Procedure(s): Procedure Description: Diagnostic procedure Procedure Description: Coronary Angiography Diagnostic Cath Status: Elective Diagnostic Findings * No significant disease noted in the Left Main, Left Anterior Descending, Right, or Circumflex coronary arteries. * Left main artery is very short. Almost separate ostial of LAD and left circumflex arteries. * Coronary angiography shows left dominance. Conclusions 1. No significant disease noted in the Left Main, Left Anterior Descending, Right, or Circumflex coronary arteries. 2. Non-ischemic cardiomyopathy. Recommendations * Guideline directed medical therapy for heart failure. * Outpatient cardiology follow up in 2-4 weeks. Interventional RX Recommendation: medical therapy and/or counseling Diagnostic RX Recommendation: medical therapy and/or counseling Anticoagulation: Heparin Clinical Evaluation EBL: 5mL-10mL Procedural Details Procedure Consent Obtained. Admit Source: Out Patient. Current Diagnosis : Chest Pain. Karthikeyan Srivastava RN, SCHOOL LIBRARIAN was relieved by RT Emery(R) as monitoring person. Pre-Procedure Time Out. Identified patient by full name and date of as verbalized by the patient/guarantor. Does the consent match the physician's order: Yes. Accurate & Complete Informed Consent: Yes. Inpatient/Outpatient History & Physical on Chart: Yes. If H&P is completed, is and addenduem needed: No; If yes, is the addendum complete: N/A. Visualize and Verify Site with Patient/Guarantor: N/A. Relevant Radiology Images available: Yes. Pre-op teaching completed and patient verbalized understanding. The risks, benefits, and alternatives of sedation and/or procedure were discussed by physician. The patient agrees to continue. Procedure started. [facility] Clinical Fraility Score: 2: Well. Software Test Analyst Indications: LV Dysfunction. Chest Pain Symptom Assessment: Asymptomatic. Correct patient, site and procedure confirmed by cath team. PERRLA. Strong, equal hand signal inspector bilaterally. Lungs clear x 5 lobes. IV Site on Arrival: 18 gauge in the left anticubital. IV Fluids: 0.9% NaCl at KVO. 0 mL infused prior to supervisor labor gang. Pre Procedural Pulses: right radial was 3+. Pre Procedural Pulses: bilateral dorsalis pedis was 2+. Pre Procedural Pulses: bilateral posterior tibial was 2+. Oxygen started at 2liters/min via nasal canula. right groin was prepped with chloroprep then draped in the usual sterile fashion. right radial was prepped with chloroprep then draped in the usual sterile fashion. Physician notified. Baseline sample Acquired. HR: 80 BPM. Physician arrived. Physician scrubbed in. Immediate Pre-Procedure Time Out. Correct Patient: Yes; Correct Procedure: Yes; Correct Site: Yes; Correct Patient Position: Yes; Correct Supplies: Yes; Dried Flammable Prep: Yes; Blood Products Available: N/A;. Lidocaine 1% infiltrated to the right radial. Arterial access obtained. Wire and needle out. Arterial access obtained. Lidocaine 1% infiltrated to the right radial. A 5 sami TIG catheter in over wire. Multiple views taken of right coronary artery. Catheter redirected to the LCA. Catheter removed over the exchange wire. A 5 sami JL3.5 catheter in over wire. Multiple views taken of left coronary artery. Catheter removed over the exchange wire. A 5 sami Angled Pig catheter in over wire. Catheter removed over the exchange wire. A TR Band was successful obtaining hemostatsis at the Right Radial artery insertion site. Post Procedure: Pulses reassessed and unchanged. PERRLA. Strong, equal hand signal inspector bilaterally. No VTE prophylaxis required. Vital chart was stopped. Medication's Wasted: Lidocaine 1% = 1 mL. Medication's Wasted: Nitro = 49.9 mg. Medication's Wasted: Heparin = 1000 units. Medication's Wasted: Other = Versed 1 mg. Total IV fluids: 40 mL. Complications: None. Estimated blood loss: 5mL-10mL. Responsiveness - Normal response to verbal stimuli; alert and oriented, PERRLA. Airway - Unaffected, no intervention required; spontaneous ventilation. Circulation: W/N/L, pulses unchanged. Nausea/Vomiting: No. Procedure completed. Patient transferred by wheelchair to 1st floor. Access Site Site: Right Radial artery Sheath Size: 6 Fr Hemostasis Method: TR Band Hemostasis Success: Successful Procedure Medications Start: 6:21 AM Stop: 6:21 AM Medication: Versed Amount: 1 mg Route: I.V. Start: 6:28 AM Stop: 6:28 AM Medication: Versed Amount: 1 mg Route: I.V. Start: 6:30 AM Stop: 6:30 AM Medication: Nitrogylcerin Amount: 200 mcg Route: I.A. Start: 6:32 AM Stop: 6:32 AM Medication: Heparin Amount: 5000 units Route: I.V. Start: 6:41 AM Stop: 6:41 AM Medication: Nitrogylcerin Amount: 200 mcg Route: I.A. I, the attending physician, have reviewed and verified all procedure medications. Yes, all medications given per verbal order History/Risk Factors Hypertension: No Dyslipidemia: No Peripheral Arterial Disease (PAD): No Myocardial Infarction ([place]): No Obesity: No Renal Disease: No Tobacco Use: Current/Recent(w/in 1 year) Prior Interventions PCI: No CABG: No Valve Surgery: No Report Signatures Finalized by Josiah Junior MD on 10/13/2022 11:39 AM
[2022-10-13] MEDS: sodium chloride 0.9% 1,000 ML 50 ML IV (05:44)
[2022-10-13] MEDS: diphenhydrAMINE 50 mg Capsule PO (05:44)
[2022-10-13] MEDS: aspirin 325 mg Tablet PO (05:44)
--- NOTE | 2022-10-13 06:22 | W.PM.OPSUD ---
Surgery/Procedure H&P Update DATE OF PROCEDURE: October 13, 2022 DATE H&P PERFORMED: 10/11/22 H&P UPDATE INFORMATION: I have reviewed H&P completed within last 30 days, I have examined patient prior to procedure and No changes to prior documentation PREOP DIAGNOSIS: LV dysfunction/ Congestive heart failure PRIMARY INDICATION FOR PROCEDURE: LV dysfunction/ Congestive heart failure PLANNED PROCEDURE: Operation Date: 10/13/22 06:00 Proposed Procedures p Cardiac Catheterization(Left) - Josiah Junior M.D Possible percutaneous coronary intervention PATIENT REASSESSED PRIOR TO SEDATION, WITH NO CHANGE NOTED: Yes PHYSICAL EXAM: alert, oriented x 3, clear to auscultation bilaterally and regular rate & rhythm AIRWAY EVAL/ANESTHESIA PLAN: normal airway, ASA III, Local Anesthesia, Risks, benefits & alternatives of sedation and/or procedure discussed and Patient agrees to continue as planned
--- NOTE | 2022-10-13 06:34 | PC.NURSE ---
Pt off unit for cardiac cath procedure.
--- NOTE | 2022-10-13 06:49 | PM.PN ---
Subjective Subjective: Patient had coronary angiogram today that does not reveal significant CAD. Non-ischemic cardiomyopathy Vitals/I&O/Wt Last Vital Signs Temp 97.9 F 10/13/22 04:00 Pulse 71 10/13/22 04:24 Resp 16 10/13/22 04:00 BP 109/64 10/13/22 04:00 Pulse Ox 96 10/13/22 04:00 O2 Del Method Room Air 10/13/22 04:00 O2 Flow Rate 2 10/11/22 08:06 10/12/22 10/12/22 10/13/22 14:59 22:59 06:59 Intake Total 1129.033 / 1129.033 530 / 1659.033 Balance 1129.033 / 1129.033 530 / 1659.033 Physical Exam Narrative: GENERAL: Patient is alert, awake and oriented x3. [] NECK: No jugular vein distension. [] HEENT: No cyanosis. No icterus. No pallor. [] HEART: Regular S1 and S2. No murmur, rub or gallop. [] LUNGS: Clear to auscultate bilaterally. [] CENTRAL NERVOUS SYSTEM: Grossly nonfocal. [] EXTREMITIES: Lower extremities with no edema bilaterally. Data 10/13/22 04:00 10/12/22 01:21 Micro: Microbiology 10/10/22 20:09 Gram Stain - Final Sputum - Expectorated Sputum Sputum Culture - Preliminary 10/10/22 21:00 Urine Culture - Preliminary Urine,Clean Catch A&P Assessment and plan (1) Cardiomyopathy: Non-ischemic (2) Aspiration pneumonia: (3) Drug overdose: Qualifiers: Encounter type: initial encounter Injury intent: accidental or unintentional Qualified Code(s): T50.901A - Poisoning by unspecified drugs, medicaments and biological substances, accidental (unintentional), initial encounter Plan Patient is cardiomyopathy is nonischemic. Likely secondary to drug abuse and alcohol use. Strongly recommended to quit immediately. We will add low-dose beta-molina. We will also start lisinopril if blood pressure tolerates. Thank you for involving us with care of this patient. Patient can be discharged home later if access site normal. Please call with questions. Attestations Medical Necessity Statement*: Care expected to cross 2 midnights. Coding Level of Care Code Acute Code for [facility] Diagnoses Cardiomyopathy I42.9 Aspiration pneumonia J69.0 Drug overdose T50.901A Encounter type: initial encounter Injury intent: accidental or unintentional
--- NOTE | 2022-10-13 07:14 | PC.NURSE ---
Patient back from slab installer at 0620. Bedside report taken from Therese Pleitez RN. 15ml in TR band. Patient vitals are stable and she is resting comfortable in bed.
[2022-10-13] MEDS: sodium chloride 0.9% 1,000 ML 100 ML IV (07:17)
[2022-10-13] MEDS: amoxicillin-clav 875-125 mg Tablet 1 TAB PO (07:53)
[2022-10-13] MEDS: folic acid 1 mg Tablet PO (07:54)
[2022-10-13] MEDS: acetaminophen 500 mg Tablet PO (07:54)
[2022-10-13] MEDS: metoprolol tartrate 25 mg Tablet 12.5 MG PO (08:01)
--- NOTE | 2022-10-13 11:08 | PM.DCS ---
Discharge Providers Date of Admission: 10/10/22 18:06 Date of Discharge: October 13, 2022 Attending Provider at Admission: Britney Hawkins MD Attending Provider at Discharge: Britney Hawkins MD Primary Care Provider: ROSALIE Deluna Diagnoses at Discharge Discharge Diagnosis (1) Cardiomyopathy: Status: Acute (2) Aspiration pneumonia: Status: Acute (3) Drug overdose: Status: Acute Qualifiers: Encounter type: initial encounter Injury intent: accidental or unintentional Qualified Code(s): T50.901A - Poisoning by unspecified drugs, medicaments and biological substances, accidental (unintentional), initial encounter Reason for Visit Reason for Visit: OVERDOSE Hospital Course Hospital Course 32-year-old female who was admitted for management evaluation of unresponsiveness related to fentanyl, drug screen positive for cocaine as well, patient responded well to 2 doses of Narcan, remained hemodynamically stable, patient experienced 2 episode of vomiting after getting Narcan and aspirated, she remained afebrile, however required oxygen throughout hospitalization, she was monitored in the ICU, EKG showed QTc prolongation, no signs of arrhythmia, echo requested as well patient was given Zosyn for aspiration pneumonia and possible UTI. Next day patient was endorsing feeling better. Patient will be discharged on levofloxacin 5-day regimen along thiamine, folic acid. Patient is stating that she has history of polysubstance abuse and has lived a clean life for a long time but used fentanyl again and became unresponsive, she was surprised when I told her that her U tox was positive for cocaine Her EF was 30%, coronary angiogram was done which was nondiagnostic, she has stress related cardiomyopathy, initially there was concern for left ventricular thrombus she was put on heparin drip however echo with contrast did not show such thrombus, she will be discharged home, patient is stating that she would like to follow-up with rehab services aide at [facility] near her home, her blood pressure is 101/74 mmHg, not a good candidate to be put on lisinopril or metoprolol succinate at this point. 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 Business Planning Analyst at this point has not recommended LifeVest considering nonischemic cardiomyopathy Physical Exam Narrative: Awake and alert Hemodynamically stable GCS 15 Currently on room air Euvolemic No active discomfort Discharge Data Studies Completed and Pending Completed Studies During Hospitalization Category Date Time Status XR chest 1V portable [id number] Stat Exams 10/10/22 16:57 Completed CV. echo complete* [id number] Routine Ultrasound 10/10/22 19:32 Completed CV. echo wo/w contrast [id number] Routine Ultrasound 10/11/22 12:26 Completed Pending at discharge Category Date Time Status SUPERVISOR MICROFILM DUPLICATING UNIT request for service Routine Exams 10/13/22 05:28 Taken Blood Culture Stat Lab 10/10/22 19:42 Results Platelet Count Q2D Lab 10/15/22 04:00 Ordered Radiology Impressions Chest X-Ray 10/10/22 16:57 IMPRESSION: 1. There are bilateral perihilar and lower lobe airspace density, which may represent pneumonia, pulmonary edema, or inflammatory pneumonitis such as ARDS. 2. Probable CHF. Laboratory Results WBC 11.9 10^3/uL (4.0-10.0) H 10/11/22 02:19 RBC 4.57 10^6/uL (4.1-5.3) 10/11/22 02:19 Hgb 13.7 g/dL (11.5-15.3) 10/11/22 02:19 Hct 42.0 % (37.0-47.0) 10/11/22 02:19 MCV 91.9 fl (81-99) 10/11/22 02:19 MCH 30.0 pg (28.0-34.0) 10/11/22 02:19 MCHC 32.6 g/dL (30.0-36.0) 10/11/22 02:19 RDW 12.6 % (12.1-15.1) 10/11/22 02:19 Plt Count 347 10^3/cmm (130-400) 10/13/22 04:00 MPV 9.6 fL (7.4-10.4) 10/11/22 02:19 Neut % (Auto) 68.6 % 10/11/22 02:19 Lymph % (Auto) 24.6 % 10/11/22 02:19 [place] % (Auto) 4.5 % 10/11/22 02:19 Eos % (Auto) 1.7 % 10/11/22 02:19 Baso % (Auto) 0.3 % 10/11/22 02:19 Neut # (Auto) 8.18 10^3/uL (1.8-7.7) H 10/11/22 02:19 Lymph # (Auto) 2.9 10^3/uL (0.8-4.8) 10/11/22 02:19 [place] # (Auto) 0.5 10^3/uL (0.2-0.9) 10/11/22 02:19 Eos # (Auto) 0.2 10^3/uL (0.0-0.8) 10/11/22 02:19 Baso # (Auto) 0.0 10^3/uL (0.0-0.1) 10/11/22 02:19 Nucleated RBC % (auto) 0 % 10/11/22 02:19 Nucleated RBCs # 0.0 /100WBC 10/11/22 02:19 APTT 48.3 SECONDS (23.9-36.7) H 10/12/22 08:00 Specimen Type Arterial 10/11/22 03:30 Sample Site Radial, right 10/11/22 03:30 ABG pH 7.38 (7.35-7.45) 10/11/22 03:30 ABG pCO2 53.5 mmHg (35-45) H 10/11/22 03:30 ABG pO2 77.6 mmHg (80.0-100.0) L 10/11/22 03:30 ABG HCO3 31.6 mmol/L (22-26) H 10/11/22 03:30 ABG O2 Saturation 81.5 10/10/22 16:55 ABG Base Excess 5.0 mmol/L (-2.0-2.0) H 10/11/22 03:30 John Test Pos 10/11/22 03:30 A-a O2 Gradient 7.2 mmHg (5-10) 10/10/22 16:55 Hematocrit 41.5 % (37-47) 10/11/22 03:30 Hgb O2 Saturation 79.2 % (95-100) L 10/10/22 16:55 Carboxyhemoglobin 2.6 %THgb (0.4-20.1) 10/10/22 16:55 Methemoglobin 0.2 % (0.4-1.5) L 10/10/22 16:55 Total Hemoglobin 13.9 g/dL (12-16) 10/10/22 16:55 Sodium 139.0 mmol/L (131-143) 10/10/22 16:55 Potassium 3.6 mmol/L (3.5-5.0) 10/10/22 16:55 Glucose 189.0 mg/dL (70-115) H 10/10/22 16:55 Ionized Calcium 1.2 mmol/L (1.1-1.4) 10/10/22 16:55 O2 Delivery Device Nc 10/11/22 03:30 O2 Liters/Min 4.0 % 10/11/22 03:30 Complaint Evaluation Supervisor ID yorna 10/11/22 03:30 Sodium 140 mmol/L (136-145) 10/12/22 01:21 Potassium 4.5 mmol/L (3.5-5.1) 10/12/22 01:21 Chloride 103 mmol/L (98-107) 10/12/22 01:21 Carbon Dioxide 29 mmol/L (22-29) 10/12/22 01:21 Anion Gap 12.5 (5-19) 10/12/22 01:21 BUN 13 mg/dL (6-20) 10/12/22 01:21 Creatinine 0.8 mg/dL (0.5-0.9) 10/12/22 01:21 GFR Calculation 84.2 mL/min (90-130) L 10/12/22 01:21 Glucose 132 mg/dL (65-115) H 10/12/22 01:21 Calculated Osmolality 292 mOsm/kg (285-295) 10/12/22 01:21 Calcium 9.0 mg/dL (8.5-10.5) 10/12/22 01:21 Phosphorus 3.3 mg/dL (2.5-4.5) 10/11/22 02:19 Magnesium 1.9 mg/dL (1.7-2.3) 10/11/22 02:19 Total Bilirubin 0.2 mg/dL (0.15-1.2) 10/10/22 16:55 AST 25 U/L (0-32) 10/10/22 16:55 ALT 22 U/L (0-33) 10/10/22 16:55 Alkaline Phosphatase 79 U/L (35-105) 10/10/22 16:55 Troponin T Baseline 68 ng/L (0-10) H 10/11/22 12:42 Troponin T 120 Minute 62.77 ng/L (0-10) H 10/11/22 14:46 Delta Troponin T -5.23 ABS# (0-10) L 10/11/22 14:46 Troponin T Hi Sens 6Hr 53.66 ng/L (0-10) H 10/11/22 18:37 Troponin T Hi Sens 6Hr Delta -14.34 ng/L (0-12) L 10/11/22 18:37 C-Reactive Protein 5.7 mg/L (0.0-4.9) H 10/11/22 02:19 NT-Pro-B Natriuret Pep 189 pg/mL (0-125) H 10/10/22 19:42 Total Protein 7.2 g/dL (6.6-8.7) 10/10/22 16:55 Albumin 4.1 g/dL (3.5-5.2) 10/10/22 16:55 Globulin 3.1 g/dL (1.3-4.6) 10/10/22 16:55 Procalcitonin 0.02 ng/mL (0-0.5) 10/10/22 19:42 TSH 2.58 uIU/mL (0.27-4.20) 10/10/22 19:42 HCG, Qual Negative (Negative) 10/10/22 18:42 Urine Color Red (Yellow) 10/10/22 21:00 Urine Appearance Sl hazy (CLEAR) A 10/10/22 21:00 Urine pH 7 (5-7) 10/10/22 21:00 Ur Specific [place]iano 1.000 (1.005-1.030) L 10/10/22 21:00 Urine Protein Neg (Negative) 10/10/22 21:00 Urine Glucose (UA) Norm (Normal) 10/10/22 21:00 Urine Ketones Negative (Negative) 10/10/22 21:00 Urine Blood 3+ (Negative) H 10/10/22 21:00 Urine Nitrate Negative (Negative) 10/10/22 21:00 Urine Bilirubin Neg (Negative) 10/10/22 21:00 Urine Urobilinogen Norm mg/dL (Negative) 10/10/22 21:00 Ur Leukocyte Esterase Trace (Negative) H 10/10/22 21:00 Urine RBC >100 /hpf (0-2) H 10/10/22 21:00 Urine WBC 0-4 /hpf (0-5) H 10/10/22 21:00 Ur Squamous Epith Cells 0-4 /hpf (0-5) H 10/10/22 21:00 Amorphous Sediment Not Reportable 10/10/22 21:00 Urine Bacteria Trace /hpf (NONE) 10/10/22 21:00 Salicylates < 0.3 mg/dL (3-10) L 10/10/22 16:55 Urine Opiates Screen Negative ng/mL (Negative) 10/10/22 21:00 Acetaminophen < 5.0 ug/mL (10-30) L 10/10/22 16:55 Ur Barbiturates Screen Negative ng/mL (Negative) 10/10/22 21:00 Ur Phencyclidine Scrn Negative ng/mL (Negative) 10/10/22 21:00 Ur Amphetamines Screen Negative ng/mL (Negative) 10/10/22 21:00 U Benzodiazepines Scrn Negative ng/mL (Negative) 10/10/22 21:00 Urine Cocaine Screen Positive ng/mL (Negative) H 10/10/22 21:00 U Marijuana (THC) Screen Negative ng/mL (Negative) 10/10/22 21:00 Ethyl Alcohol 54 mg/dL (0-10) H 10/10/22 16:55 Hepatitis A IgM Ab Non-reactive (Nonreactive) 10/10/22 02:19 Hep Bs Antigen Non-reactive (Nonreactive) 10/10/22 02:19 Hep Bs Antibody 4.2 (11.5-1000) L 10/10/22 02:19 Hep B Core Total Ab Non-reactive (Nonreactive) 10/10/22 02:19 Hepatitis C Antibody Non-reactive (Nonreactive) 10/10/22 02:19 HIV 1&2 Ab & HIV 1 Ag Non-reactive (Non-Reactiv) 10/10/22 02:19 HIV 1&2 Antibody Non-reactive (Non-Reactiv) 10/10/22 02:19 Vitals Last Vital Signs Temp 97.9 F 10/13/22 04:00 Pulse 68 10/13/22 08:34 Resp 16 10/13/22 07:52 BP 101/74 10/13/22 06:54 Pulse Ox 97 10/13/22 07:52 O2 Del Method Room Air 10/13/22 07:52 O2 Flow Rate 2 10/11/22 08:06 Discharge Plan Discharge Patient Disposition: Home Condition: Stable Prescriptions: New folic acid 1 mg Tablet 1 mg PO DAILY Qty: 30 0RF naloxone [Narcan] 4 mg/actuation spray,non-aerosol 4 mg intranasal Q2M PRN (Reason: opioid overdose) Qty: 2 0RF Rx Instructions: spray 1 dose into ONE nostril; alternate nostrils w each dose until help arrives thiamine mononitrate (vit B1) 100 mg tablet 100 mg PO DAILY Qty: 30 0RF amoxicillin-pot clavulanate 875-125 mg tablet 1 tab PO BID Qty: 10 0RF Continued Xanax 0.5 mg Tablet 0.5 mg PO DAILY PRN (Reason: Anxiety) Protonix 40 mg Tablet,Delayed Release (Dr/Ec) 40 mg PO DAILY Lexapro 20 mg Tablet 20 mg PO DAILY Discharge Orders: Discharge Order (Routine); Ordered 10/13/22 Ordered By: Britney Hawkins Referrals: Claudette Singh FNP [Nurse Practitioner] - 10/22/22 11:15 am (Please follow-up Claudette Singh on October 22 at 11:15A.M. If you have any questions or need to reschedule. Please call ) Jenny King FNP [Primary Care Provider] - 10/25/22 1:45 pm [facility] Patient Instructions: Thiamine (By mouth), Amoxicillin/Clavulanate Potassium (By mouth) (Augmentin, Augmentin..., Folic Acid (By mouth), Naloxone (Into the nose) (Narcan, Kloxxado), Narcotic Safety (DC), Aspiration Pneumonia (DC), Heart Catheterization (DC), Opioid Safety, Post Angiogram Home Care Instructions, Pain Management Activity Restrictions/Additional Instructions: Please follow-up with your primary care doctor to set up an appointment with a rehab services aide at [facility] it is very important that you get close follow-up with the rehab services aide you will need another echo within 3 months to see if your heart ejection fraction has improved from 30% You do not have any blockages in the coronary vessels, this will be considered stress related cardiomyopathy Discharge Attestations Time Spent in Discharge Care*: greater than 30 min Quality Metrics Clinical Quality Measures [ No reported AMI, CVA or VTE this stay] Coding Level of Care Code Acute Code for [facility] Diagnoses Cardiomyopathy I42.9 Aspiration pneumonia J69.0 Drug overdose T50.901A Encounter type: initial encounter Injury intent: accidental or unintentional
== END 2022-10-13 13:50 | disposition home or self-care (01) | DRG 917 ==
LOC: ER 18:08 → ICU 18:15 → CSU 10-11 17:49
PROVIDERS: Internal Medicine; Admitting Provider Internal Medicine; Emergency Provider Emergency Medicine; PCP Registered Nurse; Visit Provider Internal Medicine
PROC: B2111ZZ Fluoroscopy of Multiple Coronary Arteries using Low Osmolar Contrast (ICD-10-PCS; principal; 2022-10-13 06:00)
DX: T40.411A Poisoning by fentanyl or fentanyl analogs, accidental (unintentional), initial encounter (principal); J69.0 Pneumonitis due to inhalation of food and vomit; N39.0 Urinary tract infection, site not specified; I50.20 Unspecified systolic (congestive) heart failure; I42.8 Other cardiomyopathies; T40.5X1A Poisoning by cocaine, accidental (unintentional), initial encounter; F17.200 Nicotine dependence, unspecified, uncomplicated; F10.10 Alcohol abuse, uncomplicated; R77.8 Other specified abnormalities of plasma proteins
CPT/HCPCS: 36415; 36600; 71045; 80048; 80051; 80053; 80306; 80307; 81001; 81025; 82330; 82803; 82805; 83735; 83880; 84100; 84145; 84443; 84484; 85025; 85049; 85730; 86140; 86705; 86706; 86709; 86803; 87040; 87070; 87086; 87205; 87340; 87641; 87806; 93005; 93306; 93454; 94760; 94799; 96365; 96367; 96372; 96375; 96376; 99152; 99153; 99291; C1769; C1887; C1894; C8929; J1644; J1940; J2060; J2250; J2310; J2405; J2543; J3370; J3411; J3490; J7030; J7050; J7120; Q0163; Q9956; Q9967